=== PATIENT | female | born 1965 | race Caucasian/White ===

== ENCOUNTER 2020-12-24 17:52 | Emergency (ER) | payer OTHER, SELFPAY ==
[2020-12-24 19:35] VITALS: BP 107/52; PULSE 58; RESP 18; TEMP 36.9; O2SAT 99; BMI 42.3
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
== END 2020-12-24 21:07 | disposition home or self-care (01) ==
PROVIDERS: Emergency Provider Emergency Medicine
DX: J34.0 Abscess, furuncle and carbuncle of nose (principal); R22.0 Localized swelling, mass and lump, head; G35 Multiple sclerosis; Z93.2 Ileostomy status
CPT/HCPCS: 99283

== ENCOUNTER 2020-12-26 15:05 | Emergency (ER) | payer OTHER, SELFPAY ==
[2020-12-26 15:08] VITALS: BP 114/79; PULSE 73; RESP 16; TEMP 37.4; O2SAT 99; BMI 19.2
[2020-12-26 17:00] LABS: Eosinophils Absolute Auto 0.1 X10*3/uL (0.0-0.4); Eosinophils Percent Auto 1.2 % (0-4); Hemoglobin 15.3 g/dl (12.0-16.0); Imm Gran Abs Auto 0.01 X10*3/uL (0.00-0.03); Imm Gran Pct Auto 0.2 % (0.0-0.4); MANUAL DIFF FLAG SCAN; Mean Corpuscular Hemoglobin 28.9 pg (27.0-33.0); Monocytes Absolute Auto 0.3 X10*3/uL (0.1-1.2); PLT CLUMP 1; SCAN SMEAR FLAG 1
[2020-12-26 17:02] LABS: Basophils Percent Auto 0.5 % (0-2); Lymphocytes Absolute Auto 1.2 X10*3/uL (1.2-4.9); Lymphocytes Percent Auto 30.4 % (20-40); Mean Corpuscular Volume 84.9 fL (80-98); Mean Platelet Volume 9.4 fL (9.4-12.3); Monocytes Percent Auto 7.6 % (2-11); Neutrophils Absolute Auto 2.5 X10*3/uL (2.0-8.3); Neutrophils Percent Auto 60.1 % (45-73); Platelet Count 111 X10*3/uL (160-400); Red Cell Distribution Width 13.2 % (11.0-16.0); White Blood Count 4.1 X10*3/uL (4.8-10.8)
[2020-12-26 17:31] LABS: Anion Gap 14 (12-20); Blood Urea Nitrogen 21 mg/dL (9-16); Calcium 9.5 mg/dL (8.4-10.2); Carbon Dioxide 21 mmol/L (22-29); Chloride 110 mmol/L (96-108); Creatinine Clr Calc Pharmacy 55.5; Estimated Glomerular Filt Rate > 60; Glucose Random 92 mg/dL (60-115); Potassium 3.6 mmol/L (3.3-5.1); SLIDE REVIEW VERIFIED; Sodium 141 mmol/L (135-145)
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
[2020-12-26] MEDS: vancomycin HCL 1,000 MG in 0.9 % Sodium Chloride 250 ML 270 MG IV (19:13)
[2020-12-26 19:15] VITALS: BP 105/52; PULSE 62; RESP 15; O2SAT 98
== END 2020-12-26 20:53 | disposition home or self-care (01) ==
PROVIDERS: Emergency Provider Internal Medicine; PCP Internal Medicine
DX: L03.211 Cellulitis of face (principal); S00.31XA Abrasion of nose, initial encounter; W50.0XXA Accidental hit or strike by another person, initial encounter; G35 Multiple sclerosis; F41.9 Anxiety disorder, unspecified; Y93.89 Activity, other specified; Y92.019 Unspecified place in single-family (private) house as the place of occurrence of the external cause; Y99.9 Unspecified external cause status; I48.91 Unspecified atrial fibrillation
CPT/HCPCS: 36415; 80048; 85025; 96365; 99284; J3370

== ENCOUNTER 2020-12-28 07:00 | Inpatient (IN) | payer MEDICARE, OTHER, SELFPAY ==
[2020-12-28] VITALS (8 sets, daily range): BP systolic 93–122; BP diastolic 43–70; PULSE 53–70; RESP 15–18; TEMP 36.2–37.3; O2SAT 99–100; BMI 20.1
--- NOTE | ~2020-12-28 | CT_ITS ---
CT head/brain w con CLINICAL INFORMATION: Reason for Exam Facial infection, headache, rule out brain abscess COMPARISON: No prior CT scan available for comparison. TECHNIQUE: Department standard protocol. 85 mL Omnipaque [address] examination was performed using dose optimization techniques as appropriate, variously including the following: *Automated exposure control *Adjustment of mA and/or kV according to patient size (this includes techniques or standardized protocols for targeted exams where dose is matched to indication/reason for exam; i.e. extremities or head) *Use of iterative reconstruction technique DLP: 642 mGy-cm FINDINGS: CEREBRAL HEMISPHERES: There is no evidence of intra-axial or extra-axial mass, hemorrhage or acute infarct. BRAIN PARENCHYMA: Normal young-white matter differentiation. SUBDURAL SPACE: No bleed. BASAL GANGLIA AND PINEAL GLAND: Unremarkable VENTRICLES: Symmetric and normal in size. CEREBELLUM AND BRAINSTEM: No space-occupying mass, hemorrhage or acute infarct. CEREBELLOPONTINE ANGLES: No lesion found. ORBITS: No intraorbital mass. VESSELS: Unremarkable SKULL BASE: Unremarkable INCLUDED SINUSES AT SKULL BASE: Clear SKULL AND SKIN: No fracture or bone lesion found. CT/CT head/brain w con IMPRESSION: No CT evidence of intracranial space-occupying mass, bleed or infarct. No CT evidence of intracranial abscess.
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
[2020-12-28 08:05] LABS: MANUAL DIFF FLAG NO
[2020-12-28 08:10] LABS: Basophils Percent Auto 0.7 % (0-2); Eosinophils Absolute Auto 0.1 X10*3/uL (0.0-0.4); Eosinophils Percent Auto 1.2 % (0-4); Hematocrit 40.9 % (37-47); Imm Gran Abs Auto 0.01 X10*3/uL (0.00-0.03); Imm Gran Pct Auto 0.2 % (0.0-0.4); Lymphocytes Absolute Auto 1.5 X10*3/uL (1.2-4.9); Lymphocytes Percent Auto 37.9 % (20-40); Mean Corpuscular HGB Conc 34.2 g/dl (31.0-35.0); Mean Corpuscular Hemoglobin 28.8 pg (27.0-33.0); Mean Corpuscular Volume 84.2 fL (80-98); Mean Platelet Volume 10.1 fL (9.4-12.3); Monocytes Absolute Auto 0.3 X10*3/uL (0.1-1.2); Monocytes Percent Auto 7.7 % (2-11); Neutrophils Absolute Auto 2.1 X10*3/uL (2.0-8.3); Neutrophils Percent Auto 52.3 % (45-73); Platelet Count 107 X10*3/uL (160-400); Red Blood Count 4.86 X10*6/uL (4.20-5.50); Red Cell Distribution Width 12.8 % (11.0-16.0)
[2020-12-28 08:28] LABS: COVID-19 Test Negative (Negative)
[2020-12-28] MEDS: 0.9 % Sodium Chloride 1,000 ML 999 ML IV ×2 (08:31→11:51)
[2020-12-28] MEDS: vancomycin HCL 1,000 MG in 0.9 % Sodium Chloride 250 ML 270 MG IV (08:31)
[2020-12-28 08:33] LABS: Lactic Acid 0.7 mmol/L (0.5-2.0)
[2020-12-28 08:35] LABS: Alanine Aminotransferase 14 U/L (0-31); Albumin Level 4.3 g/dL (3.5-5.0); Alkaline Phosphatase 64 U/L (39-117); Anion Gap 13 (12-20); Aspartate Amino Transferase 18 U/L (5-31); Bilirubin Total 0.5 mg/dL (0.0-1.0); Blood Urea Nitrogen 24 mg/dL (9-16); Carbon Dioxide 19 mmol/L (22-29); Chloride 111 mmol/L (96-108); Creatinine Clr Calc Pharmacy 52.6; Estimated Glomerular Filt Rate > 60; Glucose Random 90 mg/dL (60-115); Lipase 47 U/L (8-78); Potassium 3.8 mmol/L (3.3-5.1); Sodium 139 mmol/L (135-145); Total Protein 6.4 g/dL (6.5-8.0)
[2020-12-28 09:05] LABS: Erythrocyte Sedimentation Rate 2 MM/HR (0-20)
[2020-12-28] MEDS: iohexoL 350 MG/ML 100 ML INFUS..BTL IV (09:37)
--- NOTE | 2020-12-28 10:39 | PC.NURSE ---
patient kortneyo finished, pt reporting itching in eyes, has been rubbing them. eyes not swollen. no hives noted to body. also itching arms. md made aware. rn back to check in on patient, patient sleeping, states her itching is better at this time.
--- NOTE | 2020-12-28 12:43 | ED.GENADULT ---
HPI - General Adult General Chief complaint: General Medical Stated complaint: scab infection on nose Time Seen by Provider: 12/28/20 07:21 Source: patient Mode of arrival: ambulatory Limitations: no limitations Related Data Home Medications Medication Instructions Recorded Confirmed Vitamin B-12 1,000 mg QMONTH 12/28/20 12/28/20 aspirin 81 mg PO DAILY 12/28/20 12/28/20 buspirone 1 tab PO TID 12/28/20 12/28/20 cholecalciferol (vitamin D3) 2,000 unit PO DAILY 12/28/20 12/28/20 [Vitamin D3] digoxin 250 mcg PO DAILY 12/28/20 12/28/20 estradiol 0.5 mg PO DAILY 12/28/20 12/28/20 folic acid 1 mg PO DAILY 12/28/20 12/28/20 hydroxyzine HCl 25 mg PO BID 12/28/20 12/28/20 levothyroxine 150 mcg PO DAILY 12/28/20 12/28/20 methotrexate 20 mg SUBCUT QWEEK 12/28/20 12/28/20 midodrine 10 mg PO TID 12/28/20 12/28/20 ondansetron 8 mg DAILY MRX1 12/28/20 12/28/20 pantoprazole 40 mg PO DAILY 12/28/20 12/28/20 pentosan polysulfate sodium 200 mg PO BID 12/28/20 12/28/20 [Elmiron] pramipexole 1 mg PO DAILY 12/28/20 12/28/20 sertraline [Zoloft] 150 mg PO DAILY 12/28/20 12/28/20 topiramate [Topamax] 150 mg PO BID 12/28/20 12/28/20 Previous Rx's Medication Instructions Recorded doxycycline hyclate 100 mg PO BID #14 cap 12/24/20 cephalexin 500 mg PO QID 10 Days #40 cap 12/26/20 doxycycline hyclate 100 mg PO BID 4 Days #8 cap 12/26/20 Allergies Allergy/AdvReac Type Severity Reaction Status Date / Time clarithromycin [From Biaxin] Allergy Muscle Verified 12/24/20 19:34 cramps gabapentin Allergy Unknown Verified 12/28/20 07:45 glatiramer (copolymer 1) Allergy Hives Verified 12/24/20 19:34 [From Copaxone] Macrolide Antibiotics Allergy Unknown Verified 12/28/20 07:45 metoclopramide Allergy Unknown Verified 12/28/20 07:45 Penicillins Allergy Hives Verified 12/24/20 19:34 prochlorperazine Allergy Muscle Verified 12/24/20 19:34 [From Compazine] cramps promethazine [From Phenergan] Allergy Muscle Verified 12/24/20 19:34 cramps propofol Allergy Unknown Verified 12/28/20 07:45 [facility] Past Medical History Medical History (Updated 12/28/20 @ 13:09 by OMAR Chavarria) Anxiety Atrial fibrillation Chronic pain Endometriosis GERD (gastroesophageal reflux disease) Ileostomy in place Lupus Macular degeneration Multiple sclerosis Orthostatic hypotension Seizure Thyroid activity decreased Surgical History (Updated 12/28/20 @ 13:09 by OMAR Chavarria) H/O: hysterectomy History of appendectomy S/P total colectomy Family History Family History Other Breast cancer Social History Social History (Updated 12/28/20 @ 13:12 by OMAR Chavarria) Household Members: Spouse Housing: House Do you presently have visiting nurse or other home services: No Alcohol intake: never Smoking Status: Never smoker Smoked in Last 30 Days: Yes Use of substances other than those prescribed or required for medical reasons: No Have you been hit, kicked, punched, or otherwise hurt by someone within the past year? If so, by whom?: No Do you feel safe in your current relationship?: Yes Is there a partner from a previous relationship who is making you feel unsafe now?: No Are you made to feel afraid or neglected: No Advance Directives: No Advance Directives Information Provided: No Do you have thoughts of harming others: None Do you have a plan to hurt others: No Plan Recently lost weight without trying: No Physical Exam Vital Signs: Vital Signs: Last Vital Signs Temp 97.7 F 12/29/20 04:00 Pulse 55 12/29/20 04:00 Resp 16 12/29/20 04:00 BP 113/61 12/29/20 04:00 Pulse Ox 100 12/29/20 04:00 Body Mass Index 20.1 Medical Decision Making Lab Data Result diagrams: 12/28/20 07:59 12/28/20 07:59 Labs: Lab Results 12/28/20 12/28/20 12/28/20 Range/Units 07:58 07:59 07:59 WBC 4.0 L (4.8-10.8) X10*3/uL RBC 4.86 (4.20-5.50) X10*6/uL Hgb 14.0 (12.0-16.0) g/dl Hct 40.9 (37-47) % MCV 84.2 (80-98) fL MCH 28.8 (27.0-33.0) pg MCHC 34.2 (31.0-35.0) g/dl RDW 12.8 (11.0-16.0) % Plt Count 107 L (160-400) X10*3/uL MPV 10.1 (9.4-12.3) fL Immature Gran % (Auto) 0.2 (0.0-0.4) % Neut % (Auto) 52.3 (45-73) % Lymph % (Auto) 37.9 (20-40) % [place] % (Auto) 7.7 (2-11) % Eos % (Auto) 1.2 (0-4) % Baso % (Auto) 0.7 (0-2) % Lymph # (Auto) 1.5 (1.2-4.9) X10*3/uL [place] # (Auto) 0.3 (0.1-1.2) X10*3/uL Eos # (Auto) 0.1 (0.0-0.4) X10*3/uL Baso # (Auto) 0.0 (0.0-0.2) X10*3/uL Abs Immat Gran (auto) 0.01 (0.00-0.03) X10*3/uL Absolute Neuts (auto) 2.1 (2.0-8.3) X10*3/uL Absolute Nucleated RBC 0.000 (0.0-0.012) X10*3/uL Nucleated RBC % (auto) 0.0 (0.0-0.2) /100WBC ESR 2 (0-20) MM/HR Sodium (135-145) mmol/L Potassium (3.3-5.1) mmol/L Chloride (96-108) mmol/L Carbon Dioxide (22-29) mmol/L Anion Gap (12-20) BUN (9-16) mg/dL Creatinine (0.5-1.4) mg/dL Estim Creat Clear Calc Estimated GFR Random Glucose (60-115) mg/dL Lactic Acid 0.7 (0.5-2.0) mmol/L Calcium (8.4-10.2) mg/dL Total Bilirubin (0.0-1.0) mg/dL AST (5-31) U/L ALT (0-31) U/L Alkaline Phosphatase (39-117) U/L Total Protein (6.5-8.0) g/dL Albumin (3.5-5.0) g/dL Lipase (8-78) U/L COVID-19 (GLADIS) (Negative) COVID-19 Clin Com 12/28/20 12/28/20 Range/Units 07:59 08:00 WBC (4.8-10.8) X10*3/uL RBC (4.20-5.50) X10*6/uL Hgb (12.0-16.0) g/dl Hct (37-47) % MCV (80-98) fL MCH (27.0-33.0) pg MCHC (31.0-35.0) g/dl RDW (11.0-16.0) % Plt Count (160-400) X10*3/uL MPV (9.4-12.3) fL Immature Gran % (Auto) (0.0-0.4) % Neut % (Auto) (45-73) % Lymph % (Auto) (20-40) % [place] % (Auto) (2-11) % Eos % (Auto) (0-4) % Baso % (Auto) (0-2) % Lymph # (Auto) (1.2-4.9) X10*3/uL [place] # (Auto) (0.1-1.2) X10*3/uL Eos # (Auto) (0.0-0.4) X10*3/uL Baso # (Auto) (0.0-0.2) X10*3/uL Abs Immat Gran (auto) (0.00-0.03) X10*3/uL Absolute Neuts (auto) (2.0-8.3) X10*3/uL Absolute Nucleated RBC (0.0-0.012) X10*3/uL Nucleated RBC % (auto) (0.0-0.2) /100WBC ESR (0-20) MM/HR Sodium 139 (135-145) mmol/L Potassium 3.8 (3.3-5.1) mmol/L Chloride 111 H (96-108) mmol/L Carbon Dioxide 19 L (22-29) mmol/L Anion Gap 13 (12-20) BUN 24 H (9-16) mg/dL Creatinine 0.94 (0.5-1.4) mg/dL Estim Creat Clear Calc 52.6 Estimated GFR > 60 Random Glucose 90 (60-115) mg/dL Lactic Acid (0.5-2.0) mmol/L Calcium 9.0 (8.4-10.2) mg/dL Total Bilirubin 0.5 (0.0-1.0) mg/dL AST 18 (5-31) U/L ALT 14 (0-31) U/L Alkaline Phosphatase 64 (39-117) U/L Total Protein 6.4 L (6.5-8.0) g/dL Albumin 4.3 (3.5-5.0) g/dL Lipase 47 (8-78) U/L COVID-19 ([facility]ADIS) Negative (Negative) COVID-19 Clin Com See Note Discharge Plan Discharge Clinical Impression: Cellulitis of face, Suspected carrier of methicillin resistant Staphylococcus aureus (MRSA) Patient Disposition: Admitted As Inpatient Interventions: Admission Worksheet (ED) Last Done: 12/28/20 18:10 Discharge Date/Time: 12/28/20 18:11
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
--- NOTE | 2020-12-28 13:06 | PC.NURSE ---
pt states she doesn't think she will absorb the valcyclovir, informed and he requested i contact a pharmacist, pharmacist states absorption is rapid but unsure if she will absorb enough of the med so they recommend iv to start, hospitalist and ed informed and hospitalist will change meds to iv form
[2020-12-28] MEDS: Midodrine HCl 10 MG TABLET PO (16:27)
[2020-12-28] MEDS: busPIRone HCl 10 MG TABLET PO ×2 (16:28→20:27)
[2020-12-28] MEDS: Acyclovir Sodium 500 MG in Dextrose 5 % 100 ML 110 MG IV (16:28)
[2020-12-28] MEDS: 0.9 % Sodium Chloride Flush 3 ML SYRINGE IVFLUSH (16:33)
[2020-12-28] MEDS: Acetaminophen 325 MG TABLET 650 MG PO (16:37)
[2020-12-28] MEDS: Topiramate 100 MG TABLET 150 MG PO (20:27)
[2020-12-28] MEDS: traMADoL HCL 50 MG TABLET PO (21:35)
[2020-12-29] VITALS: BP 109/53; PULSE 57; RESP 16; TEMP 36.3; O2SAT 99
[2020-12-29] MEDS: 0.9 % Sodium Chloride Flush 3 ML SYRINGE IVFLUSH (00:54)
[2020-12-29 04:00] VITALS: BP 113/61; PULSE 55; RESP 16; TEMP 36.5; O2SAT 100
[2020-12-29] MEDS: Omeprazole 20 MG CAPSULE.DR PO (06:46)
[2020-12-29 06:59] LABS: MANUAL DIFF FLAG NO
[2020-12-29 07:07] LABS: Basophils Percent Auto 0.8 % (0-2); Eosinophils Absolute Auto 0.1 X10*3/uL (0.0-0.4); Eosinophils Percent Auto 1.6 % (0-4); Hematocrit 40.5 % (37-47); Hemoglobin 13.6 g/dl (12.0-16.0); Imm Gran Abs Auto 0.01 X10*3/uL (0.00-0.03); Imm Gran Pct Auto 0.3 % (0.0-0.4); Lymphocytes Absolute Auto 1.5 X10*3/uL (1.2-4.9); Lymphocytes Percent Auto 39.8 % (20-40); Mean Corpuscular HGB Conc 33.6 g/dl (31.0-35.0); Mean Corpuscular Hemoglobin 28.6 pg (27.0-33.0); Mean Corpuscular Volume 85.1 fL (80-98); Mean Platelet Volume 9.9 fL (9.4-12.3); Monocytes Absolute Auto 0.2 X10*3/uL (0.1-1.2); Monocytes Percent Auto 5.8 % (2-11); Neutrophils Percent Auto 51.7 % (45-73); Platelet Count 101 X10*3/uL (160-400); Red Blood Count 4.76 X10*6/uL (4.20-5.50); Red Cell Distribution Width 13.2 % (11.0-16.0); White Blood Count 3.8 X10*3/uL (4.8-10.8)
[2020-12-29 07:38] LABS: Anion Gap 10 (12-20); Blood Urea Nitrogen 20 mg/dL (9-16); Carbon Dioxide 24 mmol/L (22-29); Chloride 112 mmol/L (96-108); Creatinine Clr Calc Pharmacy 63.4; Estimated Glomerular Filt Rate > 60; Glucose Random 92 mg/dL (60-115); Potassium 4.1 mmol/L (3.3-5.1); Sodium 142 mmol/L (135-145)
[2020-12-29 07:45] LABS: Calcium 8.8 mg/dL (8.4-10.2)
[2020-12-29 08:00] VITALS: BP 90/50; PULSE 51; RESP 15; TEMP 36.2; O2SAT 100
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
[2020-12-29] MEDS: Folic Acid 1 MG TABLET PO (09:12)
[2020-12-29] MEDS: Topiramate 100 MG TABLET 150 MG PO (09:12)
[2020-12-29] MEDS: Pramipexole Di-HCL 1 MG TABLET PO (09:12)
[2020-12-29] MEDS: busPIRone HCl 10 MG TABLET PO (09:12)
[2020-12-29] MEDS: Cholecalciferol (Vitamin D3) 25 MCG TABLET PO (09:14)
[2020-12-29] MEDS: Sertraline HCL 50 MG TABLET 150 MG PO (09:14)
[2020-12-29 09:15] VITALS: BP 90/50; PULSE 51
[2020-12-29] MEDS: Acetaminophen 325 MG TABLET 650 MG PO (09:15)
[2020-12-29] MEDS: Levothyroxine Sodium 150 MCG TABLET PO (09:15)
[2020-12-29] MEDS: estradioL 0.5 MG TABLET PO (09:15)
[2020-12-29] MEDS: Midodrine HCl 10 MG TABLET PO ×2 (09:15→11:14)
[2020-12-29] MEDS: Aspirin 81 MG TAB.CHEW PO (09:15)
--- NOTE | 2020-12-29 10:25 | MHC.CM.PN ---
PATIENT IS INDEPENDENT WITH HER ADLS. PLAN IS FOR DC TODAY WITH NO NEED FOR SERVICES. RN AWARE OF THE PLAN.
[2020-12-29 11:14] VITALS: BP 90/50; PULSE 51
[2020-12-29 11:56] VITALS: BP 123/61; PULSE 53; RESP 17; TEMP 36.7; O2SAT 99
== END 2020-12-29 12:15 | disposition home or self-care (01) | DRG 603 ==
LOC: HO.ED 12:10 → HO.EDOVER 13:18 → HO.S3 16:05
PROVIDERS: Physician Assistant Medical; Admitting Provider Family Medicine; Emergency Provider Emergency Medicine Emergency Medical Services; PCP Internal Medicine; Visit Provider Family Medicine
DX: L03.211 Cellulitis of face (principal); G35 Multiple sclerosis; M32.9 Systemic lupus erythematosus, unspecified; B02.9 Zoster without complications; I48.91 Unspecified atrial fibrillation; D69.6 Thrombocytopenia, unspecified; D72.819 Decreased white blood cell count, unspecified; I95.1 Orthostatic hypotension; E03.9 Hypothyroidism, unspecified; G40.909 Epilepsy, unspecified, not intractable, without status epilepticus; Z20.822 Contact with and (suspected) exposure to COVID-19; Z79.82 Long term (current) use of aspirin; Z79.890 Hormone replacement therapy; Z79.891 Long term (current) use of opiate analgesic; Z79.899 Other long term (current) drug therapy
CPT/HCPCS: 36415; 70460; 80048; 80053; 83605; 83690; 85025; 85652; 87040; 87071; 87205; 87635; 96361; 96365; 96372; 99285; J0133; J3370; Q9967

== ENCOUNTER 2022-12-10 11:39 | Outpatient (REF) | payer BC, SELFPAY ==
--- NOTE | ~2022-12-10 | XR_ITS ---
EXAMINATION: XR KNEE, RIGHT CLINICAL INFORMATION: Arthritis. COMPARISON: None TECHNIQUE: AP and lateral views of the right knee. FINDINGS: Bones and soft tissues are normal. No fracture or dislocation. There is a very small joint effusion. Alignment is anatomic. Joint spaces are well maintained. No abnormal soft tissue calcification. XR/XR knee RT 2V IMPRESSION: 1. No fracture, dislocation or unusual degenerative change is seen of the right knee. 2. There is a very small right knee joint effusion. EXAMINATION: XR KNEE, LEFT CLINICAL INFORMATION: Arthritis. COMPARISON: None TECHNIQUE: AP and lateral views of the left knee. Bones and soft tissues are normal. No fracture or dislocation. There is a very small joint effusion. Alignment is anatomic. Joint spaces are well maintained. No abnormal soft tissue calcification. IMPRESSION: 1. No fracture, dislocation or unusual degenerative change is seen of the left knee. 2. There is a very small left knee joint effusion.
--- NOTE | ~2022-12-10 | XR_ITS ---
EXAMINATION: XR HAND, RIGHT CLINICAL INFORMATION: Arthritis. COMPARISON: None TECHNIQUE: PA, lateral, and oblique views of the right hand. FINDINGS: There is bony demineralization. Bony alignment is normal. There is a slight ulnar positive variance. There are periarticular calcifications noted of the second and third distal interphalangeal joints. The joint spaces are well-maintained. No abnormal bony erosive change is seen. The ulnar styloid is intact. There is no fracture or dislocation noted. No focal soft tissue swelling, gas or foreign body is seen. XR/XR hand RT min 3V IMPRESSION: There are very mild degenerative changes of the right second and third distal interphalangeal joints. No fracture or dislocation is seen. There is no abnormal bony erosive change. EXAMINATION: XR HAND, LEFT CLINICAL INFORMATION: Arthritis. COMPARISON: None TECHNIQUE: PA, lateral, and oblique views of the left hand. FINDINGS: There is bony demineralization. Bony alignment is normal. There is a neutral ulnar variance. There are tiny periarticular calcifications of the second and third distal interphalangeal joint. The joint spaces are well-maintained. No abnormal bony erosive changes are seen. The ulnar styloid is intact. There is no fracture or dislocation. No focal soft tissue swelling, gas or foreign body is seen. IMPRESSION: There are minimal degenerative changes of the left second and third distal interphalangeal joints. No fracture or dislocation is seen. There is no abnormal bone erosion.
--- NOTE | ~2022-12-10 | XR_ITS ---
EXAMINATION: XR HAND, RIGHT CLINICAL INFORMATION: Arthritis. COMPARISON: None TECHNIQUE: PA, lateral, and oblique views of the right hand. FINDINGS: There is bony demineralization. Bony alignment is normal. There is a slight ulnar positive variance. There are periarticular calcifications noted of the second and third distal interphalangeal joints. The joint spaces are well-maintained. No abnormal bony erosive change is seen. The ulnar styloid is intact. There is no fracture or dislocation noted. No focal soft tissue swelling, gas or foreign body is seen. XR/XR hand LT min 3V IMPRESSION: There are very mild degenerative changes of the right second and third distal interphalangeal joints. No fracture or dislocation is seen. There is no abnormal bony erosive change. EXAMINATION: XR HAND, LEFT CLINICAL INFORMATION: Arthritis. COMPARISON: None TECHNIQUE: PA, lateral, and oblique views of the left hand. FINDINGS: There is bony demineralization. Bony alignment is normal. There is a neutral ulnar variance. There are tiny periarticular calcifications of the second and third distal interphalangeal joint. The joint spaces are well-maintained. No abnormal bony erosive changes are seen. The ulnar styloid is intact. There is no fracture or dislocation. No focal soft tissue swelling, gas or foreign body is seen. IMPRESSION: There are minimal degenerative changes of the left second and third distal interphalangeal joints. No fracture or dislocation is seen. There is no abnormal bone erosion.
--- NOTE | ~2022-12-10 | XR_ITS ---
EXAMINATION: XR KNEE, RIGHT CLINICAL INFORMATION: Arthritis. COMPARISON: None TECHNIQUE: AP and lateral views of the right knee. FINDINGS: Bones and soft tissues are normal. No fracture or dislocation. There is a very small joint effusion. Alignment is anatomic. Joint spaces are well maintained. No abnormal soft tissue calcification. XR/XR knee LT 2V IMPRESSION: 1. No fracture, dislocation or unusual degenerative change is seen of the right knee. 2. There is a very small right knee joint effusion. EXAMINATION: XR KNEE, LEFT CLINICAL INFORMATION: Arthritis. COMPARISON: None TECHNIQUE: AP and lateral views of the left knee. Bones and soft tissues are normal. No fracture or dislocation. There is a very small joint effusion. Alignment is anatomic. Joint spaces are well maintained. No abnormal soft tissue calcification. IMPRESSION: 1. No fracture, dislocation or unusual degenerative change is seen of the left knee. 2. There is a very small left knee joint effusion.
[2022-12-10 13:33] LABS: MANUAL DIFF FLAG NO
[2022-12-10 14:39] LABS: Basophils Percent Auto 0.6 % (0-2); Eosinophils Absolute Auto 0.2 X10*3/uL (0.0-0.4); Eosinophils Percent Auto 2.4 % (0-4); Hematocrit 41.5 % (37.0-47.0); Hemoglobin 13.1 g/dl (12.0-16.0); Imm Gran Abs Auto 0.05 X10*3/uL (0.00-0.03); Imm Gran Pct Auto 0.7 % (0.0-0.4); Lymphocytes Absolute Auto 1.1 X10*3/uL (1.2-4.9); Lymphocytes Percent Auto 15.9 % (20-40); Mean Corpuscular HGB Conc 31.6 g/dl (31.0-35.0); Mean Corpuscular Volume 85.6 fL (80.0-98.0); Mean Platelet Volume 10.2 fL (9.4-12.3); Monocytes Absolute Auto 0.4 X10*3/uL (0.1-1.2); Monocytes Percent Auto 6.5 % (2-11); Neutrophils Percent Auto 73.9 % (45-73); Platelet Count 179 X10*3/uL (160-400); Red Blood Count 4.85 X10*6/uL (4.20-5.50); Red Cell Distribution Width 12.6 % (11.0-16.0); White Blood Count 6.8 X10*3/uL (4.8-10.8)
[2022-12-10 14:44] LABS: Appearance Urine Clear; Color Urine Yellow; Glucose Urine UA Negative (Negative); Leukocyte Esterase Urine Negative (Negative); Nitrite Urine Negative (Negative); Specific Gravity - Urine 1.015 (1.005-1.025); Urine Blood Negative (Negative); Urine Ketones Negative (Negative); Urine Protein Negative (Neg-Trace)
[2022-12-10 14:46] LABS: Bacteria Urine None Seen (None Seen); Hyaline Casts Urine 0-2 /LPF (0-2); RBC Urine 0-2 /HPF (0-2); Squamous Epithelial Cell Urine 0-2 /HPF (0-2); WBC Urine 0-5 /HPF (0-5)
[2022-12-10 15:10] LABS: Alanine Aminotransferase 20 U/L (0-31); Albumin Level 4.7 g/dL (3.5-5.0); Alkaline Phosphatase 86 U/L (39-117); Anion Gap 18 (12-20); Aspartate Amino Transferase 23 U/L (5-31); Bilirubin Total 0.5 mg/dL (0.0-1.0); Blood Urea Nitrogen 26 mg/dL (9-16); C Reactive Protein 0.33 mg/dL (< or = 0.50); Calcium 9.8 mg/dL (8.4-10.2); Carbon Dioxide 27 mmol/L (22-29); Chloride 104 mmol/L (96-108); Estimated Glomerular Filt Rate 60; Glucose Random 83 mg/dL (60-115); Potassium 4.5 mmol/L (3.3-5.1); Rheumatoid Factor < 13.0 IU/mL (<15.0); Sodium 144 mmol/L (135-145)
[2022-12-10 15:22] LABS: Erythrocyte Sedimentation Rate 2 MM/HR (0-20)
[2022-12-10 15:44] LABS: Creatinine Urine 41.62 mg/dL; Total Protein Urine Random < 7 mg/dL (<12)
[2022-12-11 07:10] LABS: HBc Num1 0.19 S/CO (0.00-0.79); HBsAGNum1 0.23 S/CO (0.00-0.99); Hepatitis A Antibody IgM 0.16 Index (0-0.79); Hepatitis B Core Antibody Nonreactive (Nonreactive); Hepatitis B Surface Antigen Negative (Negative); ~HepC Num1 0.04 S/CO (0.00-0.79); ~Hepatitis A Antibody IgM Nonreactive (Nonreactive); ~Hepatitis B Surface Antibody NONREACTIVE (Nonreactive); ~Hepatitis C Antibody Nonreactive (Nonreactive)
[2022-12-14 22:49] LABS: Cardiolipin IgG Ab <2.0 GPL-U/mL; Cardiolipin IgM Ab <2.0 MPL-U/mL
[2022-12-15 12:13] LABS: Anti Nuclear Antibody Screen NEGATIVE (NEGATIVE)
[2022-12-15 13:58] LABS: Complement C3 125 mg/dL (83-193); IgA 352 mg/dL (47-310); IgG 398 mg/dL (600-1640); IgM 54 mg/dL (50-300)
[2022-12-15 14:59] LABS: Cyclic Citrullinated Peptide <16 UNITS
[2022-12-16 11:39] LABS: Anti DNA DS Antibody <1 IU/mL; Antibody to SS-A Antigen <1.0 NEG AI (<1.0 NEG); Antibody to SS-B Antigen <1.0 NEG AI (<1.0 NEG); Myeloperoxidase Antibody <1.0 AI; Proteinase 3 PR3 Antibodies <1.0 AI; SM/Ribonucleoprotein Ab <1.0 NEG AI (<1.0 NEG); Smith Protein <1.0 NEG AI (<1.0 NEG)
[2022-12-16 12:03] LABS: Prot Elec - Albumin 4.6 g/dL (3.8-4.8); Prot Elec - Alpha1 0.3 g/dL (0.2-0.3); Prot Elec - Alpha2 0.8 g/dL (0.5-0.9); Prot Elec - Beta 1 0.6 g/dL (0.4-0.6); Prot Elec - Beta 2 0.3 g/dL (0.2-0.5); Prot Elec - Gamma 0.4 g/dL (0.8-1.7)
[2022-12-16 14:57] LABS: Angiotensin Converting Enzyme 30.6 U/L (9-67)
[2022-12-16 20:42] LABS: Lysozyme, Serum 10.4 mcg/mL (5.0-11.0)
[2022-12-17 10:59] LABS: DNAds, Crithidia Antibody Negative (Negative)
[2022-12-17 20:59] LABS: Beta-2 Glycoprotein IgA <2.0 U/mL (<20.0); Beta-2 Glycoprotein IgG <2.0 U/mL (<20.0); Beta-2 Glycoprotein IgM <2.0 U/mL (<20.0)
[2022-12-17 23:19] LABS: PTT (LAC) Screen 34 sec (<=40)
== END 2022-12-10 11:40 | disposition home or self-care (01) ==
LOC: HO.XRAY 11:39
PROVIDERS: Absent Provider Internal Medicine; PCP Internal Medicine; Visit Provider Student in an Organized Health Care Education/Training Program
DX: M06.9 Rheumatoid arthritis, unspecified (principal); M32.9 Systemic lupus erythematosus, unspecified; D86.9 Sarcoidosis, unspecified; K52.9 Noninfective gastroenteritis and colitis, unspecified; I77.6 Arteritis, unspecified; D68.61 Antiphospholipid syndrome; K50.90 Crohn's disease, unspecified, without complications; Z79.899 Other long term (current) drug therapy; Z11.7 Encounter for testing for latent tuberculosis infection; Z11.59 Encounter for screening for other viral diseases
CPT/HCPCS: 73130; 73560; 80053; 81001; 82164; 82784; 84156; 84165; 85025; 85549; 85597; 85613; 85652; 85730; 86021; 86036; 86038; 86039; 86140; 86146; 86147; 86160; 86200; 86225; 86235; 86255; 86334; 86431; 86671; 86704; 86706; 86709; 86803; 87340